=== PATIENT | male | born 1950 | race American Indian/Alaskan Native ===

== ENCOUNTER 2018-02-16 16:52 | Emergency (ER) | payer MEDICARE ==
[2018-02-16 17:51] LABS: Basophils % (Auto) 0.4 % (0.0-1.8); Hematocrit 39.7 % (35.5-45.6); Hemoglobin 13.7 gm/dl (11.8-15.2); Lymphocytes # (Auto) 0.9 K/mm3 (1.2-5.4); Lymphocytes % (Auto) 9.6 % (13.4-35.0); Mean Corpuscular HGB Conc 34 % (32-34); Mean Corpuscular Hemoglobin 30 pg (28-32); Mean Corpuscular Volume 86 fl (84-94); Monocytes # (Auto) 0.8 K/mm3 (0.0-0.8); Monocytes % (Auto) 8.5 % (0.0-7.3); Platelet Count 188 K/mm3 (140-440); Red Blood Count 4.61 M/mm3 (3.65-5.03); Red Cell Distribution Width 13.7 % (13.2-15.2)
[2018-02-16 18:23] LABS: Albumin 4.3 g/dL (3.9-5); Calcium 9.5 mg/dL (8.4-10.2)
[2018-02-16] MEDS ORDERED: CATAPRES PO ONE (21:17)
--- NOTE | 2018-02-16 21:24 | Emergency Department Report ---
HPI - General Chief Complaint: High BP Time Seen by Provider: 02/16/18 20:50 - HPI HPI: Room 3 Patient is a 67-year-old male presenting with chief complaint of weak urinary stream. The patient states for the past 4 months his urinary stream has become weaker and weaker. Patient states she has difficulty urinating was only a small amount comes out each time. Patient states for the past 4 days he's had constant bilateral flank pain described as pressure. Patient denies nausea/ vomiting or fever. Patient denies dysuria or hematuria. Patient denies diarrhea. Location: Genitourinary system Duration:4 months Quality: Pressure Severity: Moderate Modifying factors: [see above] Context: [see above] Mode of transportation: Unknown ED Past Medical Hx - Past Medical History Previous Medical History?: No - Surgical History Past Surgical History?: No - Family History Family history: no significant - Social History Smoking Status: Never Smoker Substance Use Type: None - Medications Home Medications: Home Medications Medication Instructions Recorded Confirmed Last Taken Type Tamsulosin [Flomax] 0.4 mg PO QDAY #14 cap 02/17/18 Unknown Rx amLODIPine [Norvasc] 5 mg PO DAILY #30 tab 02/17/18 Unknown Rx ED Review of Systems ROS: Stated complaint: STOMACH/BACK PAIN/FALL OUT OF TRUCK Other details as noted in HPI Constitutional: denies: fever Eyes: denies: eye pain ENT: denies: throat pain Respiratory: no symptoms reported Cardiovascular: denies: chest pain Endocrine: no symptoms reported Gastrointestinal: abdominal pain. denies: nausea, vomiting Genitourinary: other (weak urinary stream) Musculoskeletal: denies: back pain Neurological: denies: headache Physical Exam - Physical Exam Vital Signs: Vital Signs 02/16/18 17:06 Temperature 97.1 F L Pulse Rate 75 Respiratory 16 Rate Blood Pressure 203/120 O2 Sat by Pulse 97 Oximetry Physical Exam: GENERAL: The patient is well-developed well-nourished male sitting in chair not appear to be in acute distress. [] HEENT: Normocephalic. Atraumatic. Extraocular motions are intact. Patient has moist mucous membranes. NECK: Supple. Trachea midline CHEST/LUNGS: Clear to auscultation. There is no respiratory distress noted. HEART/CARDIOVASCULAR: Regular. There is no tachycardia. There is no gallop rub or murmur. ABDOMEN: Abdomen is soft, nontender. Patient has normal bowel sounds. There is no abdominal distention. SKIN: There is no rash. There is no edema. There is no diaphoresis. NEURO: The patient is awake, alert, and oriented. The patient is cooperative. The patient has normal speech MUSCULOSKELETAL: There is no CVA tenderness. There is no evidence of acute injury. ED Course Vital Signs 02/16/18 17:06 Temperature 97.1 F L Pulse Rate 75 Respiratory 16 Rate Blood Pressure 203/120 O2 Sat by Pulse 97 Oximetry ED Medical Decision Making - Lab Data Result diagrams: 02/16/18 17:37 02/16/18 17:37 Laboratory Tests 02/16/18 02/16/18 02/16/18 17:37 17:37 21:12 WBC 8.8 RBC 4.61 Hgb 13.7 Hct 39.7 MCV 86 MCH 30 MCHC 34 RDW 13.7 Plt Count 188 Lymph % (Auto) 9.6 L [place] % (Auto) 8.5 H Eos % (Auto) 0.0 Baso % (Auto) 0.4 Lymph # 0.9 L [place] # 0.8 Eos # 0.0 Baso # 0.0 Seg Neutrophils % 81.5 H Seg Neutrophils # 7.2 Sodium 137 Potassium 4.3 Chloride 98.0 Carbon Dioxide 25 Anion Gap 18 BUN 15 Creatinine 1.5 Estimated GFR 57 BUN/Creatinine Ratio 10 Glucose 111 H Calcium 9.5 Total Bilirubin 0.90 AST 24 ALT 12 Alkaline Phosphatase 73 Total Protein 8.0 Albumin 4.3 Albumin/Globulin Ratio 1.2 Prostate Specific Ag 27.71 H Urine Color Urine Turbidity Urine pH Ur Specific [place] Urine Protein Urine Glucose (UA) Urine Ketones Urine Blood Urine Nitrite Urine Bilirubin Urine Urobilinogen Ur Leukocyte Esterase Urine WBC (Auto) Urine RBC (Auto) Urine Mucus 02/16/18 21:33 WBC RBC Hgb Hct MCV MCH MCHC RDW Plt Count Lymph % (Auto) [place] % (Auto) Eos % (Auto) Baso % (Auto) Lymph # [place] # Eos # Baso # Seg Neutrophils % Seg Neutrophils # Sodium Potassium Chloride Carbon Dioxide Anion Gap BUN Creatinine Estimated GFR BUN/Creatinine Ratio Glucose Calcium Total Bilirubin AST ALT Alkaline Phosphatase Total Protein Albumin Albumin/Globulin Ratio Prostate Specific Ag Urine Color Yellow Urine Turbidity Slightly-cloudy Urine pH 5.0 Ur Specific [place] 1.010 Urine Protein 30 mg/dl Urine Glucose (UA) Neg Urine Ketones Neg Urine Blood Lg Urine Nitrite Neg Urine Bilirubin Neg Urine Urobilinogen < 2.0 Ur Leukocyte Esterase Neg Urine WBC (Auto) 3.0 Urine RBC (Auto) > 182.0 Urine Mucus Few - Radiology Data Radiology results: report reviewed (CT abdomen and pelvis), image reviewed (CT abdomen and pelvis) [facility] [address] [id number] Cat Scan Report Signed Patient: TAYLA JOY MR#: [id number] : 1950 Acct:[id number] Age/Sex: 67 / M ADM Date: 02/16/18 Loc: ED Attending Dr: Ordering Physician: ES NAGEL MD Date of Service: 02/16/18 Procedure(s): CT abdomen pelvis wo con Accession Number(s): [id number] cc: ES NAGEL MD FINAL REPORT EXAM: CT ABDOMEN PELVIS WO CON HISTORY: weak urinary stream, bilateral flank pain TECHNIQUE: Axial helical imaging through the abdomen and pelvis with sagittal and coronal reformatted images obtained. Comparison: None FINDINGS: The lung bases are without infiltrate, pneumothorax or pleural fluid collection. Heart is enlarged. The liver, spleen, pancreas are unremarkable in appearance. The adrenal glands are mildly prominent, left greater than right. The gallbladder is moderately distended and unremarkable in appearance. There is bilateral hydronephrosis with bilateral hydroureter. There is no evidence of an obstructing stone. This may be secondary to moderate to marked distention of the urinary bladder at the time of the study. The urinary bladder is otherwise unremarkable. The prostate gland is enlarged and measures 6.3 centimeters x 6.5 centimeters x 6.5 centimeters. The bowel is normal caliber. There is no evidence of pneumoperitoneum or free fluid. The appendix is normal caliber. There is mild aneurysmal dilatation of the suprarenal abdominal aorta (3 centimeters) the infrarenal abdominal aorta is upper limits of normal caliber (2.5 centimeters). There is no evidence of pathologic intra-abdominal adenopathy by CT size criteria. There is an approximately 8.4 centimeter umbilical hernia that contains fat. The bony structures are unremarkable in appearance. IMPRESSION: 1. Moderate to marked distention of the urinary bladder and mild bilateral hydronephrosis and hydroureter. This is most likely secondary to bladder outlet obstruction caused by an enlarged prostate gland. 2. 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 3. Large umbilical hernia that contains fat. Transcribed By: ED Dictated By: DARLENE CHAVARRIA MD Electronically Authenticated By: DARLENE CHAVARRIA MD Signed Date/Time: 02/16/182355 DD/ 55 TD/TT: 02/16/182355 - Medical Decision Making The importance of prompt urological follow-up will discuss with the patient, patient's sister, patient's daughter and spouse. All verbalized understanding of seriousness of findings. - Differential Diagnosis BPH, prostate CA, pyelonephritis, UTI, bladder outlet obstruction Critical care attestation.: If time is entered above; I have spent that time in minutes in the direct care of this critically ill patient, excluding procedure time. ED Disposition Clinical Impression: Enlarged prostate, Bladder outlet obstruction, Elevated PSA, Hypertension Disposition: TO HOME OR SELFCARE Is pt being admited?: No Does the pt Need Aspirin: No Condition: Stable Instructions: Prostate Cancer (GEN), Benign Prostatic Hypertrophy (ED), Hypertension (ED) Additional Instructions: Return to the emergency department immediately should you develop worsening symptoms, fever, inability to tolerate food or liquid or any other concerns. Prescriptions: amLODIPine [Norvasc] 5 mg PO DAILY #30 tab Tamsulosin [Flomax] 0.4 mg PO QDAY #14 cap Referrals: SHALINI LERMA MD [Staff Physician] - [facility] (Dr. Lerma is a urologist. It is extremely important that you follow-up as soon as possible for further evaluation of your enlarged prostate. It needs to be determined if you have prostate cancer as soon as possible to improve your outcome) MARIBEL ALATORRE MD [Staff Physician] - 3-5 Days Time of Disposition: 00:04
[2018-02-16 21:55] LABS: Bilirubin,Urine NEG (Negative); Blood,Urine LG (Negative); Color,Urine Yellow (Yellow); Mucus,Urine FEW /HPF; RBC,Urine > 182.0 /HPF (0.0-6.0); Urobilinogen,Urine < 2.0 mg/dL (<2.0)
[2018-02-16 22:06] VITALS: BP 158/104
--- NOTE | 2018-02-16 23:57 | Cat Scan Report ---
FINAL REPORT EXAM: CT ABDOMEN PELVIS WO CON HISTORY: weak urinary stream, bilateral flank pain TECHNIQUE: Axial helical imaging through the abdomen and pelvis with sagittal and coronal reformatted images obtained. Comparison: None FINDINGS: The lung bases are without infiltrate, pneumothorax or pleural fluid collection. Heart is enlarged. The liver, spleen, pancreas are unremarkable in appearance. The adrenal glands are mildly prominent, left greater than right. The gallbladder is moderately distended and unremarkable in appearance. There is bilateral hydronephrosis with bilateral hydroureter. There is no evidence of an obstructing stone. This may be secondary to moderate to marked distention of the urinary bladder at the time of the study. The urinary bladder is otherwise unremarkable. The prostate gland is enlarged and measures 6.3 centimeters x 6.5 centimeters x 6.5 centimeters. The bowel is normal caliber. There is no evidence of pneumoperitoneum or free fluid. The appendix is normal caliber. There is mild aneurysmal dilatation of the suprarenal abdominal aorta (3 centimeters) the infrarenal abdominal aorta is upper limits of normal caliber (2.5 centimeters). There is no evidence of pathologic intra-abdominal adenopathy by CT size criteria. There is an approximately 8.4 centimeter umbilical hernia that contains fat. The bony structures are unremarkable in appearance. IMPRESSION: 1. Moderate to marked distention of the urinary bladder and mild bilateral hydronephrosis and hydroureter. This is most likely secondary to bladder outlet obstruction caused by an enlarged prostate gland. 2. 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 3. Large umbilical hernia that contains fat.
== END 2018-02-17 00:28 | disposition home or self-care (01) ==
LOC: ED 16:52
DX: N40.0 Benign prostatic hyperplasia without lower urinary tract symptoms (principal); N32.0 Bladder-neck obstruction; I10 Essential (primary) hypertension; R97.20 Elevated prostate specific antigen [PSA]
CPT/HCPCS: 36415; 74176; 80053; 81001; 84153; 85025; 93005; 93010; 99284